=== PATIENT | male | born 1955 | race Caucasian/White ===

== ENCOUNTER 2019-10-21 15:21 | Emergency (ER) | payer MEDICARE, MEDICAID, SELFPAY ==
[2019-10-21 15:25] VITALS: BP 140/78; PULSE 72; RESP 20; TEMP 36.6; O2SAT 98
--- NOTE | 2019-10-21 15:33 | W.ED.GENAD ---
Discharge Plan Disposition Patient Disposition: HOME Condition: Improving Discharge Details Chief Complaint: Cellulitis Clinical Impression: Ingrowing toenail of right foot Primary Care Provider: Vini Orozco ED Provider: Eben Dewey Home Meds and New Rx's Prescriptions: New cephalexin 500 mg capsule 500 mg PO TID 7 Days Qty: 21 RF: 0 Discharge Instructions Instructions: Partial Nail Avulsion for Ingrown Nail (GEN) Additional Instructions: Warm salt water soaks of toe to improve and speed healing. Take antibiotics as prescribed. We have asked our care management team to refer you to podiatry for an outpatient evaluation. Return to the ER for any acute concerns. Medical Decision Making 64-year-old male with a history of recurrent great toe ingrown nail infections. States he has had days of ingrown toe nail pain of the right great toe, attempted to instrumented at home. Now with increased swelling and discomfort overnight. No discharge, no fever. The patient's vital signs are unremarkable. Anesthetized, a wedge resection of the great toe nail on the right was performed. Patient was placed on 6. As he has had significant recurrence of ingrown toenails over years time we will refer him to podiatry for nonurgent evaluation. HPI General Mode of arrival: ambulatory. Date/Time Provider Initiated Documentation: 10/21/19 15:24. Limitations to Documentation: no limitations. Information obtained by: patient. History of Present Illness 64 year old M presents to the emergency department with the chief complaint of Right toe infection, described as similar to prior episodes, and is localized to the right and lower extremity. Patient reports no radiation. Patient started experiencing this day(s) and it has been constant. No relieving factors improve symptom(s), No exacerbating factors reported . Patient notes denies fever/chills. Patient did receive the following treatments prior to arrival, other (Attempted toenail resection at home) Related Data Home Medications Medication Instructions Recorded Confirmed cephalexin 500 mg PO TID 7 Days #21 cap 10/21/19 Previous Rx's Medication Instructions Recorded cephalexin 500 mg PO TID 7 Days #21 cap 10/21/19 Allergies Allergy/AdvReac Type Severity Reaction Status Date / Time codeine AdvReac Nausea Unverified 10/21/19 15:28 IV contrast AdvReac Hives Uncoded 10/21/19 15:28 General Stated Complaint: Cellulitis FRANCES: 4 Review of Systems Narrative: Patient has otherwise been well. No other complaints. [facility] Medical History Hypercholesteremia (Acute) Hypertension (Chronic) Social History Smoking/Tobacco Use Status: Current every day Tobacco Type: cigarettes Alcohol Intake: never Drug use: Never Substance use type: does not use Do you feel safe at home: Yes Do you feel safe in your relationship?: Yes Exam Narrative Exam Narrative: GEN: awake, alert, oriented 3. Pleasant, well groomed, interactive. HEAD: Normocephalic, atraumatic ENT: Mucous membranes moist, oropharynx unremarkable, External ear exam unremarkable EYES: PERRL, EOMI EXT: Full ROM, no edema, no rash. Right great toe with distal medial erythema and tenderness to palpation. The toenail is slightly ingrown. Neuro: Grossly normal neurologic exam, conversant, interactive. Psych: Speech fluent, thoughts congruent, affect normal Course Vital Signs Vital signs: Vital Signs Temperature 36.6 C 10/21/19 15:25 Pulse 72 10/21/19 15:25 Respiratory Rate 10/21/19 15:25 Blood Pressure 140/78 10/21/19 15:25 Pulse Oximetry 98 10/21/19 15:25 Temperature 36.6 C 10/21/19 15:25 Temperature Source Skin 10/21/19 15:25 Pulse 72 10/21/19 15:25 Respiratory Rate 20 10/21/19 15:25 Respiratory Effort Non-Labored 10/21/19 15:31 Blood Pressure 140/78 10/21/19 15:25 Blood Pressure Position Sitting 10/21/19 15:25 Pulse Oximetry 98 10/21/19 15:25 Oxygen Delivery Method Room Air 10/21/19 15:25 Oxygen Flow Rate 0 10/21/19 15:25 Procedures Other Description: Right great toenail wedge resection under local anesthesia
== END 2019-10-21 17:00 | disposition home or self-care (01) ==
PROVIDERS: Emergency Provider Emergency Medicine; PCP Family Medicine
DX: L60.0 Ingrowing nail (principal); I10 Essential (primary) hypertension
CPT/HCPCS: 11730

== ENCOUNTER 2020-03-22 11:16 | Emergency (ER) | payer MEDICARE, MEDICAID, SELFPAY ==
[2020-03-22 11:22] VITALS: BP 130/73; PULSE 70; RESP 16; TEMP 36.6; O2SAT 98
--- NOTE | 2020-03-22 11:35 | W.ED.GENAD ---
Discharge Plan Disposition Patient Disposition: HOME Condition: Stable Discharge Details Chief Complaint: EyeProblem Clinical Impression: Foreign body of right eye Primary Care Provider: Mandi Garcia ED Provider: Jan Ríos Home Meds and New Rx's Prescriptions: New erythromycin 5 mg/gram (0.5 %) ointment 0.5 inch OP TID Qty: 1 RF: 0 Continued atorvastatin 40 mg Tablet 40 mg DAILY RF: 0 lisinopril 20 mg Tablet 20 mg PO DAILY RF: 0 omeprazole 40 mg Capsule,Delayed Release(Dr/Ec) 40 mg PO DAILY RF: 0 hydrocodone-acetaminophen 7.5-300 mg Tablet 7.5 tab PRN PRNRF: 0 Discharge Instructions Additional Instructions: if pain continues Wednesday follow up with [facility]. They can be reached at [phone] if worsening pain, discharge or fevers return to the emergency department Medical Decision Making 64 yo male who states had tetanus vaccine in November comes in after he was riding a ride on mower yesterday and felt something get in his right eye. Has pain still and irriation so came here. 20/25 vision in both eyes, PERRL, eomi, no periorbital swelling, normal appearing left eye, right eye conjunctiva is erythematous. Has a 1mm foreign body over iris at the 10 oclock position on exam, no other FB seen even on eyelid eversion. Will place tetracaine and attempt removal. after tetracaine placed had immeidate relief of pain and using 18G needle able to remove foreign bodyand reassuring bowen's test. He was advised to f/u with [facility] care if pain continues Wednesday and return precautions given Differential Diagnosis Differential Diagnosis: foreign body corneal abrasion HPI General Mode of arrival: ambulatory. Date/Time Provider Initiated Documentation: 03/22/20 11:25. Limitations to Documentation: no limitations. Information obtained by: patient. History of Present Illness 64 year old M presents to the emergency department with the chief complaint of right eye pain, described as moderate, No relieving factors improve symptom(s), No exacerbating factors reported . Patient did receive the following treatments prior to arrival, none Related Data Home Medications Medication Instructions Recorded Confirmed atorvastatin 40 mg DAILY 03/22/20 03/22/20 erythromycin 0.5 inch OP TID #1 gm 03/22/20 hydrocodone-acetaminophen 7.5 tab PRN PRN 03/22/20 03/22/20 lisinopril 20 mg PO DAILY 03/22/20 03/22/20 omeprazole 40 mg PO DAILY 03/22/20 03/22/20 Previous Rx's Medication Instructions Recorded erythromycin 0.5 inch OP TID #1 gm 03/22/20 Allergies Allergy/AdvReac Type Severity Reaction Status Date / Time codeine AdvReac Nausea Unverified 03/22/20 11:27 IV contrast AdvReac Hives Uncoded 03/22/20 11:27 General Stated Complaint: EyeProblem FRANCES: 4 Review of Systems All systems reviewed & are unremarkable except as noted in HPI and below Constitutional Constitutional: Denies chills, Denies fever(s) and Denies weakness Cardiovascular Cardiovascular: Denies chest pain and Denies dyspnea Respiratory Respiratory: Denies dyspnea Gastrointestinal Gastrointestinal: Denies abdominal pain, Denies nausea and Denies vomiting Musculoskeletal Musculoskeletal: Denies joint swelling Neurologic Neurologic: Denies weakness [facility] Social History Smoking/Tobacco Use Status: Current every day Tobacco Type: cigarettes Alcohol Intake: never Drug use: Never Substance use type: does not use Do you feel safe at home: Yes Do you feel safe in your relationship?: Yes Exam Const General: no acute distress Orientation: alert HENMT Head: normal to inspection Ears: external ears normal General nose exam: external nose normal Mouth: moist mucous membranes Eyes Periorbital: periorbital findings normal Neck Neck: normal visual inspection Resp Effort & Inspection: normal respiratory effort and able to speak in complete sentences Cardio Rate: regular rate Skin General skin exam: no rashes or lesions noted Neuro General: patient alert and patient oriented x3 Extrem General: normal to inspection Psych Mental Status: mental status grossly normal Course Vital Signs Vital signs: Vital Signs Temperature 36.6 C 03/22/20 11:22 Pulse 70 03/22/20 11:22 Respiratory Rate 16 03/22/20 11:22 Blood Pressure 130/73 03/22/20 11:22 Pulse Oximetry 98 03/22/20 11:22 Temperature 36.6 C 03/22/20 11:22 Temperature Source Tympanic 03/22/20 11:22 Pulse 70 03/22/20 11:22 Respiratory Rate 16 03/22/20 11:22 Respiratory Effort Non-Labored 06/19/20 11:24 Blood Pressure 130/73 03/22/20 11:22 Pulse Oximetry 98 03/22/20 11:22 Oxygen Delivery Method Room Air 03/22/20 11:22 Oxygen Flow Rate 0 03/22/20 11:22 Pain Level 3 03/22/20 11:22
[2020-03-22] MEDS: Balanced Salt Solution 15 ML BTL OP (11:57)
[2020-03-22] MEDS: Fluorescein STRIPS 100/BOX 1 MG (11:58)
[2020-03-22] MEDS: Tetracaine 0.5% 4 ML BTL (11:59)
== END 2020-03-22 11:55 | disposition home or self-care (01) ==
PROVIDERS: Emergency Provider Emergency Medicine
DX: T15.01XA Foreign body in cornea, right eye, initial encounter (principal)
CPT/HCPCS: 65220

== ENCOUNTER 2020-04-26 09:48 | Outpatient (CLI) | payer MEDICARE, MEDICAID, SELFPAY ==
[2020-04-27 23:50] LABS: COVID-19 RT-PCR Result NEGATIVE (Negative)
== END 2020-04-26 10:08 ==
PROVIDERS: Visit Provider Internal Medicine Interventional Cardiology
DX: R94.39 Abnormal result of other cardiovascular function study (principal); Z03.818 Encounter for observation for suspected exposure to other biological agents ruled out
CPT/HCPCS: U0003

== ENCOUNTER 2020-06-21 08:09 | Outpatient (CLI) | payer MEDICARE, MEDICAID, SELFPAY ==
[2020-06-22 23:36] LABS: COVID-19 RT-PCR Result NEGATIVE (Negative)
== END 2020-06-21 08:29 ==
DX: Z11.59 Encounter for screening for other viral diseases (principal); Z01.818 Encounter for other preprocedural examination; I73.9 Peripheral vascular disease, unspecified
CPT/HCPCS: U0003

== ENCOUNTER 2020-07-06 18:24 | Outpatient (REF) | payer MEDICARE, MEDICAID, SELFPAY ==
[2020-07-06 18:58] LABS: ALT 51 U/L (16-63); AST 43 U/L (15-37); Albumin 1.8 g/dL (3.4-5.0); Alkaline Phosphatase 170 U/L (46-116); Anion Gap 9.8 mmol/L (3-11); BUN 21 mg/dL (7-18); Bilirubin, Total 0.6 mg/dL (0.2-1.0); C-Reactive Protein 11.29 mg/dL (0.0-0.3); CO2 22.2 mmol/L (21.0-32.0); CREATININE 0.79 mg/dL (0.70-1.30); Chloride 108 mmol/L (98-107); Glucose 100 mg/dL (74-106); Sodium 140 mmol/L (136-145); Total Protein 4.9 g/dL (6.4-8.2)
== END 2020-07-06 18:44 ==
LOC: LBN 18:24
PROVIDERS: Visit Provider Family Medicine
DX: R79.82 Elevated C-reactive protein (CRP) (principal); R74.8 Abnormal levels of other serum enzymes; R79.89 Other specified abnormal findings of blood chemistry; I10 Essential (primary) hypertension
CPT/HCPCS: 80053; 86140